=== PATIENT | female | born 1965 | race Caucasian/White ===

== ENCOUNTER → 2016-05-20 | Outpatient (CLI) | payer OTHER, BC ==
--- NOTE | 2016-05-20 09:42 | MM ---
Reason for exam: screening (asymptomatic). Last mammogram was performed 1 year and 1 month ago. History: Family history of breast cancer in aunt at age 70. Physical Findings: A clinical breast exam by your physician is recommended on an annual basis and results should be correlated with mammographic findings. MG Screening Mammo w CAD Bilateral CC and MLO view(s) were taken. Prior study comparison: May 01, 2015, bilateral MG screening mammo w CAD. March 16, 2013, bilateral digital screening mammo w/CAD. There are scattered fibroglandular densities. Finding: There are typically benign round calcifications in both breasts. There is a chronic nodularity bilaterally. ASSESSMENT: Benign, BI-RAD 2 RECOMMENDATION: Routine screening mammogram of both breasts in 1 year.
== END ==
LOC: RADMAMWWP 06:56
PROVIDERS: ATTEND Family Medicine
DX: Z12.31 Encounter for screening mammogram for malignant neoplasm of breast (principal)

== ENCOUNTER → 2018-05-08 | Outpatient (CLI) | payer OTHER, BC ==
--- NOTE | 2018-05-08 11:15 | CT ---
EXAMINATION TYPE: CT ChestAbdPelvis w con DATE OF EXAM: 05/08/2018 COMPARISON: NONE HISTORY: Enlarged lymph nodes CT DLP: 2563.2 mGycm. Automated Exposure Control for Dose Reduction was Utilized. CONTRAST: CT scan of the thorax, abdomen and pelvis is performed with IV Contrast, patient injected with 100 mL of Isovue 300. FINDINGS: LUNGS: There are scattered patchy dependent opacities within the lungs representing atelectasis as we ll as a superior segment left lower lobe 4 mm solid pulmonary nodule on series 6 image 22. No pleural effusion is seen. The tracheobronchial tree is patent. MEDIASTINUM: There are no greater than 1 cm hilar or mediastinal lymph nodes. There are few coronary calcifications on the left anterior descending coronary artery. No pericardial effusion is seen. OTHER: No additional significant abnormality is seen. LIVER/GB: Hepatic parenchyma is diffusely hypoattenuated in comparison to that of the spleen, most co mmonly seen in hepatic steatosis. This finding limits evaluation for hepatic masses. No gross evidenc e of hepatic mass is seen. No intrahepatic biliary ductal dilatation. Gallbladder is surgically absen t. PANCREAS: No significant abnormality is seen. SPLEEN: Surgically absent. ADRENALS: No significant abnormality is seen. KIDNEYS: No significant abnormality is seen. BOWEL: No dilated large or small bowel. Few scattered colonic diverticula are seen without pericoloni c fat stranding. GENITAL ORGANS: There is a lobulated contour the right lateral uterine upper uterine segment. Underly ing small leiomyoma is possible and could be further evaluated with pelvic ultrasound. LYMPH NODES: No greater than 1cm abdominal or pelvic lymph nodes are appreciated. Although there are no greater than 1 cm short axis lymph nodes in the abdomen nor pelvis there are few prominent lymph n odes noted within the mesentery in the right lower quadrant such as series 5 image 74 measuring 6 mm in short axis, image 84 measuring 7 mm each in short axis (2 in number), left external iliac chain on image 104 measuring 6 mm in short axis, bilateral external iliac chains on series 105 measuring 8 mm on the left and 6 mm on the right, and left external iliac chain on image 108 measuring 6 mm. OSSEOUS STRUCTURES: Mild multilevel degenerative changes of the spine are noted. OTHER: Incidental note is made of diastases recti. IMPRESSION: 1. No pathologically enlarged adenopathy in the chest, abdomen or pelvis. However there are few promi nent lymph nodes within the right lower quadrant and bilateral external iliac chains measuring up to 8 mm. Given this patient's provided history of concern for lymphoma either short-term follow-up in 3 months to ensure stability or PET/CT could be performed. 2. Hepatic steatosis. 3. 4 mm left lower lobe pulmonary nodule for which follow-up CT chest in 12 months is recommended to determine stability.
== END | disposition home or self-care (01) ==
LOC: RADCTMAIN 08:52
PROVIDERS: ATTEND Internal Medicine Hematology & Oncology
DX: K76.0 Fatty (change of) liver, not elsewhere classified (principal); R91.1 Solitary pulmonary nodule; Z88.2 Allergy status to sulfonamides; Z88.1 Allergy status to other antibiotic agents; Z88.8 Allergy status to other drugs, medicaments and biological substances
CPT/HCPCS: 71260; 74177; Q9967

== ENCOUNTER → 2018-10-30 | Outpatient (CLI) | payer OTHER ==
--- NOTE | 2018-10-30 14:27 | CT ---
EXAMINATION TYPE: CT abdomen pelvis w con DATE OF EXAM: 10/30/2018 HISTORY: Enlarged lymph nodes CT DLP: 1906.60mGycm Automated Exposure Control for Dose Reduction was Utilized. CONTRAST: CT scan of the abdomen and pelvis is performed with IV Contrast, patient injected with 100 ml mL of I sovue 300. COMPARISON: CT chest, abdomen, and pelvis dated 05/08/2018 FINDINGS: LUNG BASES: There are scattered areas of subsegmental atelectasis in the lung bases and lingula. The known 4 mm pulmonary nodule seen on the exam of 05/08/2018 is not included in the [id number] LIVER/GB: Hepatic parenchyma is diffusely hypoattenuated in comparison to that of the spleen, most co mmonly seen in hepatic steatosis. This finding limits evaluation for hepatic masses. No gross evidenc e of hepatic mass is seen. No intrahepatic biliary ductal dilatation. Gallbladder is surgically absen t. PANCREAS: No significant abnormality is seen. SPLEEN: Surgically absent. ADRENALS: No significant abnormality is seen. KIDNEYS: Punctate density adjacent to the kidney on series 3 image 33 could represent a smaller lymph nodes on the prior or nonspecific perinephric fat stranding focus. No hydronephrosis or nephrolithia sis. The kidneys are symmetrically. BOWEL: Again there are few colonic diverticula without pericolonic fat stranding. Mild degree colonic fecal burden. No dilated large or small bowel. UTERUS/ADNEXA: No gross abnormality seen. LYMPH NODES: There are again are few prominent mesenteric lymph nodes. A stable 6 mm lymph node is se en in series 3 image 44 and stable 7 mm lymph nodes on image 53. However there is slight interval enl argement of the left external iliac chain adenopathy with the largest lymph node measuring 1.0 cm in short axis as well as on the right at the largest right external chain iliac lymph node measuring 9 m m in short axis. Right superficial inguinal lymph node although is enlarged contains a fatty hilum an d measures up to 1.6 cm. A rounded structure in the left medial thigh appears to represent a venous v arix rather than lymph node. This is marked on series 3 image 98. OSSEOUS STRUCTURES: Mild multilevel degenerative changes of the spine. OTHER: Diastases recti is again noted. IMPRESSION: 1. Slight interval growth of prominent lymph nodes in the bilateral external iliac chains now measuri ng 9 mm each, upper limits of normal. An enlarged right external iliac chain lymph node contains a fa tty hilum and appears morphologically normal despite its large size. The mesenteric prominent lymph n odes are stable. No new enlarged lymph nodes in the abdomen. 2. Incidentally noted hepatic steatosis.
== END | disposition home or self-care (01) ==
LOC: RADCTMAIN 10:15
PROVIDERS: ATTEND Internal Medicine Hematology & Oncology
DX: R59.1 Generalized enlarged lymph nodes (principal)
CPT/HCPCS: 74177; Q9967

== ENCOUNTER → 2020-09-22 | Outpatient (CLI) | payer OTHER ==
--- NOTE | 2020-09-26 08:47 | MM ---
Reason for exam: screening (asymptomatic). Last mammogram was performed 4 years and 4 months ago. History: Family history of breast cancer in aunt at age 70. Physical Findings: A clinical breast exam by your physician is recommended on an annual basis and results should be correlated with mammographic findings. MG 3D Screening Mammo W/Cad Bilateral CC and MLO view(s) were taken. Prior study comparison: May 20, 2016, bilateral MG screening mammo w CAD. May 01, 2015, bilateral MG screening mammo w CAD. There are scattered fibroglandular densities. ASSESSMENT: Negative, BI-RAD 1 RECOMMENDATION: Routine screening mammogram of both breasts in 1 year.
== END | disposition home or self-care (01) ==
LOC: RADMAMWWP 06:56
PROVIDERS: ATTEND Obstetrics & Gynecology Obstetrics
DX: Z12.31 Encounter for screening mammogram for malignant neoplasm of breast (principal); Z80.3 Family history of malignant neoplasm of breast
CPT/HCPCS: 77063; 77067

== ENCOUNTER → 2020-10-10 | Outpatient (CLI) | payer OTHER ==
--- NOTE | 2020-10-10 12:47 | CT ---
EXAMINATION TYPE: CT ChestAbdPelvis w con DATE OF EXAM: 10/10/2020 INDICATION: Pulmonary Nodules, Pelvic Lymphadenopathy COMPARISON: 10/30/2018, 05/08/2018 CT DLP: 2802.3 mGycm CONTRAST: Performed with Oral Contrast and with IV Contrast, patient injected with 100 mL of Isovue 300. TECHNIQUE: Axial images at 5 mm thick sections. Reconstructed images in the coronal plane. Delayed images through the kidneys. FINDINGS: CT CHEST: Portion of the thyroid visualized is normal. No suspicious lung nodules or focal infiltrates are present. Previous posterior left upper lobe nodul es not identified on the current exam No enlarged mediastinal or hilar adenopathy is evident. A few shoddy lymph nodes are present The ascending aorta diameter at the level of the main pulmonary artery is 3.6 cm. The main pulmonary artery diameter at the bifurcation is 8.[address] ABDOMEN: Liver: Mild fatty infiltration of the liver. No discrete masses are evident. Hepatomegaly is present at 23.3 cm. Normal less than 15.5 cm. Spleen: Absent Pancreas: Normal Adrenal glands: The adrenal glands are normal. Gallbladder: Normal Kidneys: No masses are evident. No hydronephrosis is present. No cysts are present. Delayed images were obtained through the kidneys, which remain unremarkable. Aorta: Vascular calcification is within the aorta. Inferior vena cava: Normal. CT PELVIS: Loops of bowel within the abdomen and pelvis are normal. There are a few diverticular changes withi n the sigmoid colon. There are loops of bowel which are incompletely distended or lack oral contrast limiting their evaluation. Appendix: Not identified. No dilated tubular structure or inflammatory changes are evident Urinary bladder: Normal. Genitourinary structures: Uterus appears unremarkable. Adnexal regions are within normal limits. Osseous structures: No suspicious lytic or sclerotic lesions. IMPRESSIONS: 1. Hepatomegaly with mild fatty infiltration liver. 2. Diverticulosis without acute diverticulitis. 3. Previous left upper lobe nodule not evident on the current exam
== END | disposition home or self-care (01) ==
LOC: RADCTMAIN 09:01
PROVIDERS: ATTEND Internal Medicine Hematology & Oncology
DX: K76.0 Fatty (change of) liver, not elsewhere classified (principal); K57.90 Diverticulosis of intestine, part unspecified, without perforation or abscess without bleeding; R91.1 Solitary pulmonary nodule
CPT/HCPCS: 71260; 74177; Q9967 ×2

== ENCOUNTER → 2023-01-17 | Outpatient (CLI) | payer OTHER ==
[2023-01-17 11:09] LABS: Basophils # (A) 0.16 X 10*3/uL (0.00-0.10); Basophils % (A) 1.5 %; Eosinophils % (A) 2.8 %; HCT 40.3 % (37.2-46.3); HGB 12.9 d/dL (12.0-15.0); Lymphocytes % (A) 37.7 %; MCH 29.2 pg (27.0-32.0); MCV 91.2 FL (80.0-97.0); Mean Platelet Volume 11.7 FL (9.5-12.2); Monocytes # (A) 1.16 X 10*3/uL (0.20-1.00); Monocytes % (A) 10.7 %; NRBC Per 100 WBC 0 X 10*3/uL (0.00-0.01); Neutrophils # (A) 5.12 X 10*3/uL (1.80-7.70); Platelet Count 474 X 10*3/uL (140-440); RBC 4.42 X 10*6/uL (4.10-5.20); RDW 13.2 % (11.5-14.5); WBC 10.87 X 10*3/uL (4.50-10.00)
[2023-01-17 11:37] LABS: Chloride 101 mmol/L (96-109); Chol/HDL Ratio 5.65 Ratio; Glucose 113 mg/dL (70-110); LDL Cholesterol,Calculated 153.2 mg/dL (0.0-131.0); Potassium 4.7 mmol/L (3.5-5.5); Sodium 139 mmol/L (135-145)
[2023-01-17 11:38] LABS: ALT 44 U/L (8-44); AST 36 U/L (13-35); Albumin/Globulin Ratio 1.82 Ratio (1.60-3.17); Alkaline Phosphatase 75 U/L (41-126); Calcium 9.5 mg/dL (8.7-10.3); Carbon Dioxide 28.4 mmol/L (21.6-31.8); Globulin 2.2 d/dL (1.6-3.3); Total Bilirubin <0.2 mg/dL (0.3-1.2); Total Protein 6.2 d/dL (6.2-8.2)
== END | disposition home or self-care (01) ==
LOC: LABWHC1 07:22
PROVIDERS: ATTEND Internal Medicine
DX: Z11.59 Encounter for screening for other viral diseases (principal); I10 Essential (primary) hypertension
CPT/HCPCS: 36415; 80053; 80061; 84443; 85025; 86803

== ENCOUNTER → 2023-01-27 | Outpatient (CLI) | payer OTHER ==
--- NOTE | 2023-01-27 08:11 | MM ---
Reason for Exam: Screening (asymptomatic). Last mammogram was performed 2 year(s) and 4 month(s) ago. Patient History: Menarche at age 12. First Full-Term at age 23. Perimenopausal. Maternal aunt had breast cancer, age 70. Risk Values: Patricia 5 year model risk: 1.1%. NCI Lifetime model risk: 7.1%. Prior Study Comparison: 05/01/2015 Bilateral Screening Mammogram, [facility]. 05/20/2016 Bilateral Screening Mammogram, [facility]. 09/22/2020 Bilateral Screening Mammogram, [facility]. Tissue Density: The breast tissue is heterogeneously dense. This may lower the sensitivity of mammography. Findings: Analyzed By CAD. There is no suspicious group of microcalcifications or new suspicious mass in either breast. Benign calcifications within both breasts. Chronic nodularity within both breasts. Overall Assessment: Benign, BI-RAD 2 Management: Screening Mammogram of both breasts in 1 year. A clinical breast exam by your physician is recommended on an annual basis and results should be correlated with mammographic findings. Note on Patricia scores and lifetime risk: 1. A Patricia score greater than 3% is considered moderate risk. If this is the case, consider specialist referral to assess eligibility for a risk reducing agent. If overall lifetime risk for the development of breast cancer is 20% or higher, the patient may qualify for future screening with alternating mammogram and breast MRI. Electronically signed and approved by: Jorge Jefferson D.O.
--- NOTE | 2023-01-27 10:21 | BD ---
EXAMINATION TYPE: Axial Bone Density DATE OF EXAM: 01/27/2023 CLINICAL HISTORY: 57 years old Female. ICD-10 CODE: Z13.820 OSTEOPOROSIS,Z78.0 POST MENOPAUSE Height: 5 ft 3 in Weight: 229 FRAX RISK QUESTIONS: Alcohol (3 or more units per day): no Family History (Parent hip fracture): no Glucocorticoids (More than 3mos): yes (Ex: prednisone, prednisolone, methylprednisolone, dexamethasone, and hydrocortisone). History of Fracture in Adulthood: no Secondary Osteoporosis: 1. Type 1 Diabetes: type 2 2. Hyperthyroidism: no 3. Menopause before 45: no 4. Malnutrition: no 5. Chronic liver disease: no Rheumatoid Arthritis: no Current Tobacco Use: no RISK FACTORS HISTORY OF: Surgery to Spine/Hip(right/left)/Wrist (right/left): no Family History of Osteoporosis: no Active: no Diet low in dairy products/other sources of calcium: no Postmenopausal woman: no If Premenopausal, do you have irregular periods:yes Take estrogen and/or progesterone medications: no Lost more than 2 inches in height since high school: no Frequent falls: no Poor Health: fair Hyperparathyroidism: no Adrenal Insufficiency: no MEDICATIONS: Additional Medications: lisinopril, fluoxitine, allergy meds Additional History: EXAM MEASUREMENTS: Bone mineral densitometry was performed using the [employer] System. Bone mineral density as measured about the Lumbar spine is: ----- L1-L4(G/cm2): 1.194 T Score Values are as follows: ----- L1: 0.6 ----- L2: -0.1 ----- L3: 0.4 ----- L4: -0.3 ----- L1-L4: 0.1 Z Score Values are as follows: ----- L1: 0.4 ----- L2: -0.3 ----- L3: 0.2 ----- L4: -0.5 ----- L1-L4: -0.1 Bone mineral density has: increased 9.2 % since study of: 2007 Bone mineral density about the R hip (g/cm2): 0.921 Bone mineral density about the L hip (g/cm2): 0.858 T Score values are as follows: -----R Neck: -0.8 -----L Neck: -1.3 -----R Total: -0.2 -----L Total: -0.6 Z Score values are as follows: -----R Neck: -0.5 -----L Neck: -0.9 -----R Total: -0.3 -----L Total: -0.7 Bone mineral density has: decreased -9.7 % since study of: 2007 FRAX%s: The graph provided illustrates a 9.8 % chance for a major osteoporotic fx and a 0.7 % chance for the hips probability for fx in 10 years time. IMPRESSION: Osteopenia (T Score between -2.5 and -1). There is slightly increased risk of fracture and the patient may be considered for treatment. Re-Screen 2-5 years. NOTE: T-SCORE=SD OF THE YOUNG ADULT MEAN.
== END | disposition home or self-care (01) ==
LOC: RADMAMWWP 07:39
PROVIDERS: ATTEND Internal Medicine
DX: Z12.31 Encounter for screening mammogram for malignant neoplasm of breast (principal); Z13.820 Encounter for screening for osteoporosis; M85.852 Other specified disorders of bone density and structure, left thigh; I10 Essential (primary) hypertension; Z80.3 Family history of malignant neoplasm of breast; Z78.0 Asymptomatic menopausal state
CPT/HCPCS: 77063; 77067; 77080

== ENCOUNTER → 2024-05-18 | Outpatient (CLI) | payer OTHER ==
--- NOTE | 2024-05-19 08:48 | MM ---
Reason for Exam: Screening (asymptomatic). Last mammogram was performed 1 year(s) and 4 month(s) ago. Patient History: Menarche at age 12. First Full-Term at age 23. Perimenopausal. Maternal aunt had breast cancer, age 70. Last menstrual period: 05/12/2024 Risk Values: Patricia 5 year model risk: 1.2%. NCI Lifetime model risk: 6.9%. Prior Study Comparison: 05/20/2016 Bilateral Screening Mammogram, [facility]. 09/22/2020 Bilateral Screening Mammogram, [facility]. 01/27/2023 Bilateral MG 3D screening mammo w/cad, [facility]. Tissue Density: There are scattered areas of fibroglandular density. Findings: Analyzed By CAD. Chronic bilateral nodularity and unchanged central asymmetric density on the right. There is no suspicious group of microcalcifications or new suspicious mass in either breast. Overall Assessment: Benign, BI-RAD 2 Management: Screening Mammogram of both breasts in 1 year. Patient should continue monthly self-breast exams. A clinical breast exam by your physician is recommended on an annual basis. This exam should not preclude additional follow-up of suspicious palpable abnormalities. Note on Patricia scores and lifetime risk: 1. A Patricia score greater than 3% is considered moderate risk. If this is the case, consider specialist referral to assess eligibility for a risk reducing agent. 2. If overall lifetime risk for the development of breast cancer is 20% or higher, the patient may qualify for future screening with alternating mammogram and breast MRI. [facility], , 05/19/2024 8:46 AM. Electronically signed and approved by: Mary Bradford M.D. Radiologist
== END | disposition home or self-care (01) ==
LOC: RADMAMWWP 16:44
PROVIDERS: ATTEND Obstetrics & Gynecology Obstetrics
DX: Z12.31 Encounter for screening mammogram for malignant neoplasm of breast (principal); R92.323 Mammographic fibroglandular density, bilateral breasts; Z80.3 Family history of malignant neoplasm of breast
CPT/HCPCS: 77063; 77067

== ENCOUNTER → 2024-05-25 | Outpatient (CLI) | payer OTHER ==
[2024-05-25 18:45] LABS: HCT 43.4 % (37.2-46.3); HGB 13.7 g/dL (12.0-15.0); MCH 29.2 pg (27.0-32.0); MCHC 31.6 g/dL (32.0-37.0); MCV 92.5 FL (80.0-97.0); Mean Platelet Volume 11.7 FL (9.5-12.2); NRBC Per 100 WBC 0 X 10*3/uL (0.00-0.01); Platelet Count 533 X 10*3/uL (140-440); RBC 4.69 X 10*6/uL (4.10-5.20); RDW 13.4 % (11.5-14.5); WBC 15.97 X 10*3/uL (4.50-10.00)
[2024-05-25 19:35] LABS: Basophils # (M) 0.48 X 10*3/uL (0.00-0.10); Eosinophils # (M) 0.16 X 10*3/uL (0.04-0.35); Lymphocytes # (M) 5.59 X 10*3/uL (0.90-5.00); Monocytes # (M) 1.76 X 10*3/uL (0.20-1.00); Neutrophils # (M) 7.99 X 10*3/uL (1.80-7.70); Neutrophils % (M) 50 %
== END | disposition home or self-care (01) ==
LOC: LABPAT 14:37
PROVIDERS: ATTEND Obstetrics & Gynecology Obstetrics
DX: Z01.818 Encounter for other preprocedural examination (principal); I10 Essential (primary) hypertension; N95.0 Postmenopausal bleeding; R00.1 Bradycardia, unspecified; R94.31 Abnormal electrocardiogram [ECG] [EKG]
CPT/HCPCS: 85025; 93005

== ENCOUNTER → 2024-07-03 | Outpatient (CLI) | payer OTHER ==
[2024-07-03 12:51] LABS: HCT 43.2 % (37.2-46.3); HGB 13.8 g/dL (12.0-15.0); MCH 29.3 pg (27.0-32.0); MCHC 31.9 g/dL (32.0-37.0); MCV 91.7 FL (80.0-97.0); Mean Platelet Volume 11.5 FL (9.5-12.2); NRBC Per 100 WBC 0 X 10*3/uL (0.00-0.01); Platelet Count 515 X 10*3/uL (140-440); RBC 4.71 X 10*6/uL (4.10-5.20); RDW 13.5 % (11.5-14.5); WBC 12.89 X 10*3/uL (4.50-10.00)
[2024-07-03 13:08] LABS: ALT 32 U/L (8-44); AST 33 U/L (13-35); Albumin 3.9 g/dL (3.8-4.9); Albumin/Globulin Ratio 1.62 Ratio (1.60-3.17); Alkaline Phosphatase 93 U/L (41-126); BUN/Creat Ratio 17.33 Ratio (12.00-20.00); Blood Urea Nitrogen 10.4 mg/dL (9.0-27.0); Calcium 9.5 mg/dL (8.7-10.3); Cancer Antigen 125 93.9 U/mL (0.0-30.1); Carbon Dioxide 27.3 mmol/L (21.6-31.8); Chloride 101 mmol/L (96-109); Globulin 2.4 g/dL (1.6-3.3); Glucose 135 mg/dL (70-110); Potassium 4.7 mmol/L (3.5-5.5); Sodium 138 mmol/L (135-145); Total Bilirubin 0.2 mg/dL (0.3-1.2); Total Protein 6.3 g/dL (6.2-8.2)
[2024-07-03 13:21] LABS: Basophils # (M) 0.39 X 10*3/uL (0.00-0.10); Eosinophils # (M) 0.52 X 10*3/uL (0.04-0.35); Lymphocytes # (M) 4.77 X 10*3/uL (0.90-5.00); Monocytes # (M) 1.16 X 10*3/uL (0.20-1.00); Neutrophils # (M) 6.06 X 10*3/uL (1.80-7.70); Neutrophils % (M) 47 %
[2024-07-04 11:27] LABS: Appearance,Urine Turbid (Clear); Bilirubin,Urine Negative (Negative); Blood,Urine Large (Negative); Color,Urine Yellow (Yellow); Ketones,Urine Negative (Negative); Nitrite,Urine Negative (Negative); PH, Urine 5.5; Urobilinogen,Urine 0.2 E.U./DL
[2024-07-04 13:07] LABS: Bacteria,Urine 1+ (None Seen)
== END | disposition home or self-care (01) ==
LOC: LABWHC1 09:08
PROVIDERS: ATTEND Obstetrics & Gynecology Gynecologic Oncology
DX: C54.1 Malignant neoplasm of endometrium (principal)
CPT/HCPCS: 36415; 80053; 81001; 83036; 85025; 86304; 87086

== ENCOUNTER → 2024-07-08 | Outpatient (CLI) | payer OTHER ==
--- NOTE | 2024-07-08 11:24 | CT ---
EXAMINATION TYPE: CT ChestAbdPelvis w con DATE OF EXAM: 07/08/2024 9:05 AM COMPARISON: 10/10/2020 CLINICAL INDICATION: Female, 58 years old with history of C54.1 MALIGNANT NEOPLASM OF ENDOMETRIUM, En dometrial Cancer TECHNIQUE: CT ChestAbdPelvis w con , with sagittal coronal reformats. If MIP/3-D images were created, there are created on a separate workstation. Contrast used:100 ml mL of Isovue 300 with IV Contrast, (none if empty) Oral contrast used: with Oral Contrast (none if empty) CT DLP: 2230.10 mGycm, Automated exposure control for dose reduction was used. FINDINGS: CT CHEST: Portion of the thyroid visualized is normal. No suspicious lung nodules or focal infiltrates are present. No enlarged mediastinal or hilar adenopathy is evident. No significant coronary artery calcification s. The ascending aorta diameter at the level of the main pulmonary artery is 3.7 cm. The main pulmonary artery diameter at the bifurcation is 3.1 cm. There is a 2.4 cm nodular density with circumscribed margins and subcutaneous tissue upper back may b e a sebaceous cyst. Series [address] ABDOMEN: Liver: There may be some mild fatty infiltration of liver. Spleen: Absent Pancreas: Normal Adrenal glands: The adrenal glands are normal. Gallbladder: Normal Kidneys: No masses are evident. No hydronephrosis is present. There is a cortical renal cyst on lef t kidney better visualized on the delayed images. Delayed images were obtained through the kidneys, which remain otherwise unremarkable. Aorta: Normal Inferior vena cava: Normal. CT PELVIS: Loops of bowel within the abdomen and pelvis are normal. There are loops of bowel which are incom pletely distended or lack oral contrast limiting their evaluation. Appendix: Not identified. No dilated tubular structure or inflammatory change evident. Urinary bladder: Normal. Genitourinary structures: Uterus is somewhat prominent. Adnexal regions appear normal. Osseous structures: There is some sclerosis along the right pubic symphysis. This appears to have bee n present previously. Solitary metastasis is not excluded. Degenerative disc changes present L5-S1. F acet changes are within the lumbar spine. IMPRESSION: 1. Somewhat bulky uterus. Discrete suspicious abnormality to correlate with the patient's endometrial neoplasm history not identified. 2. Some sclerosis at the right pubic symphysis present in 2020. No other suspicious area for osseous metastasis. [facility], , 07/08/2024 11:22 AM
== END | disposition home or self-care (01) ==
LOC: RADCTMAIN 06:54
PROVIDERS: ATTEND Obstetrics & Gynecology Gynecologic Oncology
DX: C54.1 Malignant neoplasm of endometrium (principal); M84.851 Other disorders of continuity of bone, right pelvic region and thigh; N85.2 Hypertrophy of uterus; Z85.42 Personal history of malignant neoplasm of other parts of uterus
CPT/HCPCS: 71260; 74177; Q9967